=== PATIENT | female | born 1955 | race Asian ===

== ENCOUNTER → 2024-11-08 11:04 | Outpatient (CLI) | payer MEDICARE, SELFPAY ==
--- NOTE | 2024-11-08 11:05 | DI.CT.S_ITS ---
PROCEDURE: CT CHEST WO CON INDICATIONS: Hx of bronchiectasis, follow up TECHNIQUE: Noncontrast 5 mm thick sections acquired from the pulmonary apices to the posterior costophrenic angles. 1 mm lung window, 5 mm thick coronal and sagittal and 7 mm axial MIP reformats were then acquired. For radiation dose reduction, the following was used: automated exposure control, adjustment of mA and/or kV according to patient size. COMPARISON: (Prior imaging is not available for review from the archive at the time of this dictation.) FINDINGS: Image quality: Diagnostic. Lower Neck: No enlarged lymph nodes. Thyroid: No thyroid nodules which require sonographic follow up, per consensus guidelines. Axillae: No enlarged lymph nodes. Chest Wall: Unremarkable. Bones: Unremarkable. Lungs and Pleura: Within the lingula, there is consolidated lung seen posteriorly along the oblique fissure, with associated bronchiectasis. There is similar abnormal lung seen within the left lower lobe posterior medially. The right lung is relatively clear. No pneumothorax or pleural effusions are seen. Heart: Heart size is normal. No pericardial effusion. Thoracic Vessels: The aorta and pulmonary arteries demonstrate normal size. Atherosclerotic calcification is noted. Mediastinum and Bibi: No enlarged lymph nodes. Esophagus: No wall thickening. There is a small hiatal hernia. Upper Abdomen: Visualized upper abdomen solid organs and bowel loops appear normal. IMPRESSION: Within the posterior lingula, there is consolidated lung with associated significant bronchiectasis. Similar findings are seen within the left lower lobe posteriorly, although milder in degree. The imaging appearance is nonspecific, although please consider nontuberculous mycobacterial infection (SHANNON). This patient's priors are not available. If they become available, comparison will be made an addendum issued to this report. If priors cannot be obtained, please consider a noncontrast chest CT follow-up in 6-12 months. Additional findings: Small hiatal hernia Dictated by: Alexi Guerrero M.D. on 11/08/2024 at 14:38 Approved by: Alexi Guerrero M.D. on 11/08/2024 at 14:41
== END ==
PROVIDERS: Referring Provider Student in an Organized Health Care Education/Training Program; Visit Provider Student in an Organized Health Care Education/Training Program
DX: J47.9 Bronchiectasis, uncomplicated (principal); K44.9 Diaphragmatic hernia without obstruction or gangrene
CPT/HCPCS: 71250

== ENCOUNTER → 2024-11-13 08:43 | Outpatient (CLI) | payer MEDICARE, SELFPAY | LOC: RESP 08:44 | PROVIDERS: Referring Provider Student in an Organized Health Care Education/Training Program; Visit Provider Student in an Organized Health Care Education/Training Program | DX: J47.9 Bronchiectasis, uncomplicated (principal); R94.2 Abnormal results of pulmonary function studies | CPT/HCPCS: 94060; 94726; 94729 ==

== ENCOUNTER → 2025-06-19 13:23 | Outpatient (CLI) | payer MEDICARE, MEDICAID, SELFPAY | PROVIDERS: Referring Provider Student in an Organized Health Care Education/Training Program; Visit Provider Student in an Organized Health Care Education/Training Program | DX: J47.9 Bronchiectasis, uncomplicated (principal); J98.8 Other specified respiratory disorders; R94.2 Abnormal results of pulmonary function studies | CPT/HCPCS: 94060; 94726; 94729 ==